=== PATIENT | female | born 1990 | race Two or more races ===

== ENCOUNTER 2017-07-12 00:11 | Emergency (ER) | payer SELFPAY ==
[2017-07-12 00:19] VITALS: O2SAT 97
[2017-07-12 00:53] LABS: COLOR YELLOW; LEUKOCYTE ESTERASE,URINE NEGATIVE (NEGATIVE); NITRITE,URINE NEGATIVE (NEGATIVE)
--- NOTE | 2017-07-12 01:47 | EDPHY ---
H & P Stated Complaint: pt c/o left flank radiating to LLQ- pt palpates "lump" Time Seen by Provider: 07/12/17 01:23 HPI/ROS: Chief Complaint: Back pain HPI: 26-year-old woman presenting with 1 week of worsening left lower back pain. She has not been taking any medicine for this. Denies any injuries. No numbness or weakness. No urinary urgency or frequency. She did see her primary care physician last week who told her that her urine was concentrated. No fevers or chills. No difficulty ambulating. No skin rash. ROS: 10 point Review of Systems is negative except as noted in the HPI. PMH: Denies Social History: No smoking, no alcohol, no recreational drug use Family History: non-contributory Physical Exam: Gen: Awake, Alert, No Distress HEENT: Nose: no rhinorrhea Eyes: PERRLA, EOMI Mouth: Moist mucosa Neck: Supple, no JVD Chest: nontender, lungs clear to auscultation Heart: S1, S2 normal, no murmur Abd: Soft, non-tender, no guarding Back: no CVA tenderness, no midline tenderness, she has palpable muscle spasm in the left lower paraspinal muscles reproducing presenting complaint Ext: no edema, non-tender Skin: no rash Neuro: CN II-XII intact, Sensation grossly intact, Strength 5/5 in bilateral upper and lower extremities - Personal History LMP (Females 10-55): 22-28 Days Ago Current Tetanus Diphtheria and Acellular Pertussis (TDAP): Yes Tetanus Vaccine Date: 2014 - Medical/Surgical History Hx Asthma: Yes Hx Chronic Respiratory Disease: No Hx Diabetes: No Hx Cardiac Disease: No Hx Renal Disease: No Hx Cirrhosis: No Hx Alcoholism: No Hx HIV/AIDS: No Hx Splenectomy or Spleen Trauma: No Other PMH: Aplastic anemia, hx of unknown hepatitis - Social History Smoking Status: Never smoked Constitutional: Initial Vital Signs Temperature (C) 36.8 C 07/12/17 00:15 Heart Rate 98 07/12/17 00:15 Respiratory Rate 16 07/12/17 00:15 Blood Pressure 118/73 07/12/17 00:15 O2 Sat (%) 97 07/12/17 00:15 O2 Delivery Mode Room Air Allergies/Adverse Reactions: isoniazid Allergy (Unknown, Verified 10/21/15 18:55) Unknown Home Medications: Medication Instructions Recorded NK [No Known Home Meds] 07/12/17 Medical Decision Making ED Course/Re-evaluation: Urinalysis is negative however she does have a positive test. I have told patient she has not have any vaginal bleeding. No abdominal pain or cramping. Her abdomen is soft and nontender. She will be discharged to follow up with her OBGYN. She can take acetaminophen as needed for the pain. - Data Points Laboratory Results: 07/12/17 07/12/17 00:25 00:25 Urine Color YELLOW Urine Appearance HAZY Urine pH 5.0 (5.0-7.5) Ur Specific [place] 1.032 H (1.002-1.030) Urine Protein NEGATIVE (NEGATIVE) Urine Ketones NEGATIVE (NEGATIVE) Urine Blood NEGATIVE (NEGATIVE) Urine Nitrate NEGATIVE (NEGATIVE) Urine Bilirubin NEGATIVE (NEGATIVE) Urine Urobilinogen NEGATIVE EU EU (0.2-1.0) Ur Leukocyte Esterase NEGATIVE (NEGATIVE) Urine Glucose NEGATIVE (NEGATIVE) Urine Test POSITIVE Departure - Departure Disposition: Home, Routine, Self-Care Clinical Impression: , Back pain, Dehydration Condition: Good Instructions: Back Pain (ED), (ED), Dehydration (ED) Additional Instructions: Follow up with her OBGYN in 3-4 days for further evaluation. Return to the emergency depart for increasing lower abdominal pain, vaginal bleeding, fevers, chills, or any other concerns. Referrals: Iva Yadav DO [Primary Care Provider] - As per Instructions
[2017-07-12 01:58] VITALS: BP 131/76; PULSE 81; RESP 20; TEMP 97.9
== END 2017-07-12 01:58 | disposition home or self-care (01) ==
DX: O99.280 Endocrine, nutritional and metabolic diseases complicating pregnancy, unspecified trimester (principal); E86.0 Dehydration; J45.909 Unspecified asthma, uncomplicated; Z3A.00 Weeks of gestation of pregnancy not specified

== ENCOUNTER 2018-05-30 14:59 | Emergency (ER) | payer MEDICAID, OTHER ==
[2018-05-30] MEDS ORDERED: ACETAMINOPHEN 325 MG TAB ONE (15:43)
[2018-05-30] MEDS ORDERED: ACETAMINOPHEN 325 MG TAB PO ONE (15:49)
--- NOTE | 2018-05-30 15:55 | EDPHY ---
H & P Time Seen by Provider: 05/30/18 15:35 HPI/ROS: CHIEF COMPLAINT: Headache, blood in stool HISTORY OF PRESENT ILLNESS: Patient is a 27-year-old female status post delivery 3 months ago who presents emergency department with headache x2 weeks. Patient states she had a complicated high risk . Patient had aplastic anemia. She was induced at 35 weeks. Patient describes a diffuse headache. It is moderate and constant. It does not radiate to her neck. No focal weakness or numbness. No visual change. No fever or chills. Patient also states that for the past couple of weeks she has had slight blood with bowel movement. She now has mild discomfort with bowel movement. It feels as though it is"tearing."Patient denies lightheadedness or dizziness. Patient was significant constipated with the . REVIEW OF SYSTEMS: My complete review of systems is negative except as mentioned in the HPI. Past Medical/Surgical History: Aplastic anemia, hepatitis Smoking Status: Never smoked Physical Exam: 36.6, 112/731, 80, 17, 97% GENERAL: Well-appearing, in no acute distress, alert. HEENT: Eyes normal to inspection, normal pharynx, no signs of dehydration. NECK: No thyromegaly, no lymphadenopathy, supple. RESPIRATORY: Clear to auscultation bilaterally, no rales, rhonchi or wheezing. CVS: Regular rate and rhythm, no rubs, murmurs, or gallops. ABDOMEN: Soft, nontender, nondistended, no organomegaly. rectal: I performed a rectal exam. Patient does have a noted fissure at 7:00 position. There is no active bleeding. No palpable mass. No palpable hemorrhoid. BACK: Normal to inspection, no CVA tenderness. SKIN: Normal color, no rash, warm, dry. No pallor. EXTREMITIES: No pedal edema, no calf tenderness, no Homans sign or cords, no joint swelling. NEURO/PSYCH: Higher functions: Alert and Oriented x3. Normal speech and cognition. Normal mood and affect. Cranial nerves: Normal as tested. Cerebellar: Normal as tested. Good finger to nose, good ofnd-md-rvue, normal gait. Peripheral exam: Normal motor exam. Normal sensation. Normal reflexes. Constitutional: Initial Vital Signs Temperature (C) 36.6 C 05/30/18 15:04 Heart Rate 80 05/30/18 15:04 Respiratory Rate 17 05/30/18 15:04 Blood Pressure 112/71 05/30/18 15:04 O2 Sat (%) 97 05/30/18 15:04 O2 Delivery Mode Room Air Allergies/Adverse Reactions: isoniazid Allergy (Unknown, Verified 05/30/18 15:04) Unknown Home Medications: Medication Instructions Recorded NK [No Known Home Meds] 07/12/17 Medical Decision Making - Diagnostics Imaging Results: Imaging Impressions Head CT 05/30/18 16:00 Impression: No acute intracranial process. Findings and recommendations discussed with DANIELLE RADFORD at 1705 hour, . ED Course/Re-evaluation: In the emergency department I discussed possible etiologies with the patient. I answered all her questions. IV was placed. Laboratory studies were obtained. Patient was given acetaminophen 650 mg orally. Patient's CBC showed normal white count. Hematocrit was slightly low at 34.7. I compared this with the last previous value in our system. This was in 2016 with hematocrit of 26. Patient has platelets of 70. The previous measurement of this was also in 2016. The level was 12. Patient's chemistry panel is unremarkable. Head CT: Please refer the dictated report. No acute disease noted. I discussed the results with the patient. I answered all her questions. Patient is aware she needs close follow-up with Gastroenterology. She was also given follow-up with Hematology for her low platelet count and anemia. Patient was given warnings prior to leaving. She will return with worsening symptoms. Differential Diagnosis: My differential includes but is not limited to subarachnoid hemorrhage, subdural hematoma, epidural hematoma, CVA, dissection, aneurysm, Breezy's syndrome, rectal fissure, diverticulitis, mass, malignancy, internal hemorrhoid , external hemorrhoid - Data Points Laboratory Results: Laboratory Results 05/30/18 16:10 05/30/18 16:10 05/30/18 05/30/18 05/30/18 16:10 16:10 16:10 WBC RBC Hgb Hct MCV MCH MCHC RDW Plt Count MPV Neut % (Auto) Lymph % (Auto) [place] % (Auto) Eos % (Auto) Baso % (Auto) Nucleat RBC Rel Count Absolute Neuts (auto) Absolute Lymphs (auto) Absolute Monos (auto) Absolute Eos (auto) Absolute Basos (auto) Absolute Nucleated RBC Immature Gran % Immature Gran # PT 12.4 SEC SEC (12.0-15.0) INR 0.90 (0.83-1.16) APTT 26.5 SEC SEC (23.0-38.0) Sodium 139 mEq/L mEq/L (135-145) Potassium 3.8 mEq/L mEq/L (3.3-5.0) Chloride 107 mEq/L mEq/L (97-110) Carbon Dioxide 23 mEq/l mEq/l (22-31) Anion Gap 9 mEq/L mEq/L (8-16) BUN 17 mg/dL mg/dL (7-23) Creatinine 0.6 mg/dL mg/dL (0.6-1.0) Estimated GFR > 60 Glucose 93 mg/dL mg/dL (70-100) Calcium 9.4 mg/dL mg/dL (8.5-10.4) Total Bilirubin 0.4 mg/dL mg/dL (0.1-1.4) Conjugated Bilirubin 0.1 mg/dL mg/dL (0.0-0.5) Unconjugated Bilirubin 0.3 mg/dL mg/dL (0.0-1.1) AST 24 IU/L IU/L (14-46) ALT 32 IU/L IU/L (9-52) Alkaline Phosphatase 101 IU/L IU/L (38-126) Total Protein 8.1 g/dL g/dL (6.3-8.2) Albumin 4.6 g/dL g/dL (3.5-5.0) Beta HCG, Qual NEGATIVE 05/30/18 16:10 WBC 5.91 10^3/uL 10^3/uL (3.80-9.50) RBC 3.46 10^6/uL L 10^6/uL (4.18-5.33) Hgb 11.6 g/dL L g/dL (12.6-16.3) Hct 34.7 % L % (38.0-47.0) MCV 100.3 fL H fL (81.5-99.8) MCH 33.5 pg pg (27.9-34.1) MCHC 33.4 g/dL g/dL (32.4-36.7) RDW 12.6 % % (11.5-15.2) Plt Count 70 10^3/uL L 10^3/uL (150-400) MPV 9.9 fL fL (8.7-11.7) Neut % (Auto) 55.8 % % (39.3-74.2) Lymph % (Auto) 38.4 % % (15.0-45.0) [place] % (Auto) 4.9 % % (4.5-13.0) Eos % (Auto) 0.5 % L % (0.6-7.6) Baso % (Auto) 0.2 % L % (0.3-1.7) Nucleat RBC Rel Count 0.0 % % (0.0-0.2) Absolute Neuts (auto) 3.30 10^3/uL 10^3/uL (1.70-6.50) Absolute Lymphs (auto) 2.27 10^3/uL 10^3/uL (1.00-3.00) Absolute Monos (auto) 0.29 10^3/uL L 10^3/uL (0.30-0.80) Absolute Eos (auto) 0.03 10^3/uL 10^3/uL (0.03-0.40) Absolute Basos (auto) 0.01 10^3/uL L 10^3/uL (0.02-0.10) Absolute Nucleated RBC 0.00 10^3/uL 10^3/uL (0-0.01) Immature Gran % 0.2 % % (0.0-1.1) Immature Gran # 0.01 10^3/uL 10^3/uL (0.00-0.10) PT INR APTT Sodium Potassium Chloride Carbon Dioxide Anion Gap BUN Creatinine Estimated GFR Glucose Calcium Total Bilirubin Conjugated Bilirubin Unconjugated Bilirubin AST ALT Alkaline Phosphatase Total Protein Albumin Beta HCG, Qual Medications Given: Discontinued Medications Acetaminophen (Tylenol) 650 mg PO EDNOW ONE Stop: 05/30/18 15:50 Last Admin: 05/30/18 15:51 Dose: 650 mg Sodium Chloride (Ns) 500 mls @ 0 mls/hr IV EDNOW ONE; Wide Open PRN Reason: Protocol Stop: 05/30/18 16:00 Last Admin: 05/30/18 16:17 Dose: 500 mls Departure - Departure Disposition: Home, Routine, Self-Care Clinical Impression: Anal fissure Headache Qualifiers: Headache type: unspecified Headache chronicity pattern: acute headache Intractability: not intractable Qualified Code(s): R51 - Headache Condition: Good Instructions: Rectal Bleeding (ED), Anal Fissure (ED), Acute Headache (ED) Additional Instructions: Your hematocrit was slightly low at 34.7. You platelets were low at 70. You noted to have an anal fissure on exam. However, you will need further follow- up by Gastroenterology. Call to make an appointment. Return with worsening symptoms or concerns. Take Tylenol 650 mg every 4 hr for headache. Referrals: Iva Yadav DO [Primary Care Provider] - 5-7 days, call for appt. Morgan Couch MD [Medical Doctor] - 5-7 days, call for appt.
[2018-05-30] MEDS ORDERED: NS 500 ML IV ONE (15:59)
[2018-05-30 16:32] LABS: PLATELET COUNT 70 10^3/uL (150-400)
[2018-05-30 16:39] LABS: INR 0.9 (0.83-1.16); PROTIME(PATIENT) 12.4 SEC (12.0-15.0)
[2018-05-30 17:36] VITALS: BP 110/70
== END 2018-05-30 17:41 | disposition home or self-care (01) ==
DX: K60.2 Anal fissure, unspecified (principal); R51 Headache